=== PATIENT | female | born 1960 | race Caucasian/White ===

== ENCOUNTER 2017-04-11 21:44 | Inpatient (IN) | payer OTHER ==
[~2017-04-11] VITALS: Ht 165.1 cm; Wt 100.0 kg
[~2017-04-11 21:44] MED LIST: ADVIL200 MG PO
[2017-04-12 12:41] VITALS: BP 161/76
[2017-04-12 21:01] VITALS: BP 159/82
[2017-04-12 21:25] LABS: HEMATOCRIT 38.3 % (36.0-46.0); HEMOGLOBIN 12.5 G/DL (11.9-15.5); MCHC 32.6 G/DL (30.0-36.0); MCV 92.1 FL (83-99); PLATELET COUNT 236 K/uL (156-360); RBC DIS.WIDTH-CV 12.5 % (11.8-14.6); RBC DIS.WIDTH-SD 42.2 % (39-53); RED BLOOD COUNT 4.16 M/uL (3.80-5.20); WHITE BLOOD COUNT 10.9 K/uL (4.1-10.2)
[2017-04-12 21:45] LABS: CHLORIDE 106 MEQ/L (99-109); GFR ESTIMATE (CALCULATED) > 59 mL/min/; GLUCOSE 179 mg/dL (70-99); SODIUM 139 MEQ/L (136-147); UREA NITROGEN (BUN) 16 mg/dL (9-23)
[2017-04-12 23:36] VITALS: BP 162/79
[2017-04-13 03:58] VITALS: BP 162/84
[2017-04-13 06:51] LABS: HEMATOCRIT 36.9 % (36.0-46.0); HEMOGLOBIN 12.1 G/DL (11.9-15.5); MCHC 32.8 G/DL (30.0-36.0); MCV 91.3 FL (83-99); PLATELET COUNT 245 K/uL (156-360); RBC DIS.WIDTH-CV 12.6 % (11.8-14.6); RBC DIS.WIDTH-SD 42.6 % (39-53); RED BLOOD COUNT 4.04 M/uL (3.80-5.20); WHITE BLOOD COUNT 7.9 K/uL (4.1-10.2)
[2017-04-13 07:10] LABS: CHLORIDE 104 MEQ/L (99-109); CREATININE 1.1 MG/DL (0.6-1.3); GFR ESTIMATE (CALCULATED) 54 mL/min/; GLUCOSE 155 mg/dL (70-99); POTASSIUM 4.6 MEQ/L (3.7-5.4); SODIUM 138 MEQ/L (136-147); UREA NITROGEN (BUN) 14 mg/dL (9-23)
[2017-04-13 08:03] VITALS: BP 150/70
[2017-04-13 11:58] VITALS: BP 152/76
[2017-04-13 16:45] VITALS: BP 171/79
[2017-04-13 19:54] VITALS: BP 174/78
[2017-04-13 23:59] VITALS: BP 153/69
[2017-04-14 03:50] VITALS: BP 148/72
[2017-04-14 06:13] LABS: HEMATOCRIT 35.3 % (36.0-46.0); HEMOGLOBIN 11.5 G/DL (11.9-15.5); MCH 30.1 PG (29.0-34.0); MCHC 32.6 G/DL (30.0-36.0); MCV 92.4 FL (83-99); PLATELET COUNT 217 K/uL (156-360); RBC DIS.WIDTH-CV 12.6 % (11.8-14.6); RBC DIS.WIDTH-SD 42.7 % (39-53); RED BLOOD COUNT 3.82 M/uL (3.80-5.20); WHITE BLOOD COUNT 10.7 K/uL (4.1-10.2)
[2017-04-14 06:36] VITALS: BP 142/71
[2017-04-14 06:43] LABS: CHLORIDE 101 MEQ/L (99-109); CREATININE 1.2 MG/DL (0.6-1.3); GFR ESTIMATE (CALCULATED) 49 mL/min/; GLUCOSE 99 mg/dL (70-99); SODIUM 136 MEQ/L (136-147); UREA NITROGEN (BUN) 13 mg/dL (9-23)
[2017-04-14] MEDS ORDERED: TRAMADOL HCL50 MG PO (08:52)
== END 2017-04-14 11:15 | disposition home or self-care (01) | DRG 741 ==
LOC: 2SOUTH → ENRESERV 21:44 → 2SOUTH 04-12 08:40 → ENRESERV 04-12 17:15 → 2EAST 04-12 20:33
PROVIDERS: Obstetrics & Gynecology Gynecologic Oncology
DX: C54.1 Malignant neoplasm of endometrium (principal); D25.9 Leiomyoma of uterus, unspecified; E66.9 Obesity, unspecified; Z68.34 Body mass index [BMI] 34.0-34.9, adult; E55.9 Vitamin D deficiency, unspecified; Z87.891 Personal history of nicotine dependence; Z82.49 Family history of ischemic heart disease and other diseases of the circulatory system; Z80.3 Family history of malignant neoplasm of breast; Z80.1 Family history of malignant neoplasm of trachea, bronchus and lung; Z83.3 Family history of diabetes mellitus
CPT/HCPCS: 36415; 71045; 80048; 85027; 86850; 86900; 86901; 86920; 87086; 88305; 88309; J0131; J0330; J0690; J1100; J1170; J1650; J1885; J1940; J2250; J2405; J2710; J2765; J3010; Q0175